=== PATIENT | female | born 1955 | race Hispanic/Latino ===

== ENCOUNTER 2020-04-29 09:09 | Emergency (ER) | payer OTHER ==
[2020-04-29 09:50] LABS: APPEARANCE,URINE Clear (CLEAR); BASOPHILS % (AUTO) 0.4 % (0.0-5.0); BILIRUBIN,URINE Negative (NEGATIVE); COLOR,URINE Yellow (YELLOW); EOSINOPHILS % (AUTO) 0.9 % (0.0-8.0); GLUCOSE, URINE (UA) Negative (NEGATIVE); HEMATOCRIT 37.9 % (36-48); KETONES,URINE Negative (NEGATIVE); LEUKOCYTE ESTERASE ,URINE Small (NEGATIVE); LYMPHOCYTES % (AUTO) 25.1 % (21.0-51.0); MEAN CORPUSCULAR HEMOGLOBIN 29.7 pg (27.0-33.0); MEAN CORPUSCULAR HGB CONC 33.8 g/dL (32.0-36.0); MEAN CORPUSCULAR VOLUME 87.9 fL (79-99); MONOCYTES % (AUTO) 5.4 % (3.0-13.0); NEUTROPHILS % (AUTO) 67.8 % (40.0-77.0); NITRATE,URINE Negative (NEGATIVE); OCCULT BLOOD,URINE Negative (NEGATIVE); PLATELET COUNT (AUTO) 290 K/uL (130-400); PROTEIN,URINE Negative (NEGATIVE); RED BLOOD CELL COUNT(AUTO) 4.31 MIL/uL (4.00-5.50); RED CELL DISTRIBUTION WIDTH 12.7 % (11.0-15.5); UROBILINOGEN,URINE 0.2 mg/dL (0.2-1.0); WHITE BLOOD COUNT (AUTO) 4.6 K/uL (4.8-10.8)
[2020-04-29 09:57] LABS: BACTERIA,URINE Rare /HPF (None Seen); MUCUS,URINE Rare LPF (None Seen); RBC,URINE 0-1 /HPF (0-1); SQUAMOUS EPITHELIAL CELL,UR Rare /HPF (0-2); WBC,URINE 0-1 /HPF (0-1)
[2020-04-29 10:00] LABS: CREATININE 0.7 mg/dL (0.5-1.5); POTASSIUM 3.5 mmol/L (3.5-5.1)
[2020-04-29 10:04] LABS: ALBUMIN 4.4 g/dL (3.5-5.0); BILIRUBIN,TOTAL 0.3 mg/dL (0.2-1.0); TOTAL PROTEIN, SERUM 8.3 g/dL (6.0-8.3)
== END 2020-04-29 12:51 | disposition home or self-care (01) ==
LOC: EDH 09:09
DX: R10.12 Left upper quadrant pain (principal); F41.9 Anxiety disorder, unspecified; Z98.890 Other specified postprocedural states; Z90.710 Acquired absence of both cervix and uterus
CPT/HCPCS: 36415; 74176; 80053; 81001; 82150; 83690; 84484; 85025; 93005

== ENCOUNTER → 2022-12-04 | Outpatient (CLI) | payer OTHER ==
[2022-12-04 12:21] LABS: ALBUMIN 4.4 g/dL (3.5-5.0); CREATININE 0.7 mg/dL (0.5-1.5); POTASSIUM 3.7 mmol/L (3.5-5.1)
== END | disposition home or self-care (01) ==
LOC: LAB 08:19
PROVIDERS: ATTEND Student in an Organized Health Care Education/Training Program
DX: R94.31 Abnormal electrocardiogram [ECG] [EKG] (principal)
CPT/HCPCS: 36415; 80053

== ENCOUNTER → 2023-01-24 | Outpatient (CLI) | payer OTHER ==
[2023-01-24 16:40] LABS: CREATININE 0.7 mg/dL (0.5-1.5); POTASSIUM 3.9 mmol/L (3.5-5.1); TOTAL PROTEIN, SERUM 7.6 g/dL (6.0-8.3)
== END | disposition home or self-care (01) ==
LOC: LAB 14:55
PROVIDERS: ATTEND Student in an Organized Health Care Education/Training Program
DX: R94.31 Abnormal electrocardiogram [ECG] [EKG] (principal)
CPT/HCPCS: 36415; 80053

== ENCOUNTER → 2023-02-01 | Outpatient (CLI) | payer OTHER ==
[~2023-02-01] MED LIST: IOHEXOL 350 MG/ML 100ML INFUS..BTL IV ONE; METOPROLOL TARTRATE 1 MG/ML 5ML VIAL IV ONE
== END | disposition home or self-care (01) ==
LOC: RAH 09:15
PROVIDERS: ATTEND Student in an Organized Health Care Education/Training Program
DX: R07.89 Other chest pain (principal)
CPT/HCPCS: 75574; J3490; Q9967

== ENCOUNTER 2023-11-24 16:24 | Emergency (ER) | payer OTHER ==
[~2023-11-24] VITALS: Ht 152.4 cm; Wt 60.3 kg
[2023-11-24 17:04] LABS: HEMATOCRIT 35.2 % (36-48); MEAN CORPUSCULAR HEMOGLOBIN 29.9 pg (27.0-33.0); MEAN CORPUSCULAR HGB CONC 33.5 g/dL (32.0-36.0); MEAN CORPUSCULAR VOLUME 89.1 fL (79-99); PLATELET COUNT (AUTO) 299 K/uL (130-400); RED BLOOD CELL COUNT(AUTO) 3.95 MIL/uL (4.00-5.50); RED CELL DISTRIBUTION WIDTH 12.9 % (11.0-15.5); WHITE BLOOD COUNT (AUTO) 5.9 K/uL (4.8-10.8)
[2023-11-24 17:17] LABS: CREATININE 0.7 mg/dL (0.5-1.0); POTASSIUM 3.5 mmol/L (3.5-5.1)
[2023-11-24 17:26] LABS: ALBUMIN 4.2 g/dL (3.5-5.0); BILIRUBIN,DIRECT 0.1 mg/dL (0.0-0.3); BILIRUBIN,TOTAL 0.5 mg/dL (0.2-1.0); TOTAL PROTEIN, SERUM 7.8 g/dL (6.0-8.3)
[2023-11-24 17:34] LABS: BAND NEUTROPHILS % (MANUAL) 2 % (0-2); LYMPHOCYTES % (MANUAL) 30 % (22-44); MAN.DIFF COMMENT-IMPRESSION MANUAL DIFFERENTIAL; MONOCYTES % (MANUAL) 3 % (2-9); PLATELET MORPHOLOGY COMMENT ADEQUATE; SEGMENTED NEUTROPHILS % 65 % (40-70); TOTAL CELLS COUNTED 100; WBC MORPHOLOGY CONSISTENT W/DIFF
[2023-11-24] MEDS: LORAZEPAM 2 MG/ML 1 ML VIAL IVP ONE (17:48)
[2023-11-24 18:53] VITALS: BP 135/55; PULSE 66; RESP 18; O2SAT 99
== END 2023-11-24 19:01 | disposition home or self-care (01) ==
LOC: EDH 16:24
DX: R20.2 Paresthesia of skin (principal); F41.9 Anxiety disorder, unspecified
CPT/HCPCS: 99285; 70450; 71045; 80076; 84484; 80048; 85025; 36415; 93005; J2060